=== PATIENT | female | born 1950 | race Caucasian/White ===

== ENCOUNTER → 2018-12-24 | Outpatient (CLI) | payer OTHER ==
[~2018-12-24] VITALS: Ht 154.9 cm; Wt 96.4 kg
[~2018-12-24] MED LIST: CLONAZEPAM 0.50.5 M1 PO; CLONAZEPAM 1 MG1 M1 PO; KEFLEX500 M1 PO; LANTUS100 UNIT/M SUBQ; LIPITOR10 MG PO; LISINOPRIL40 MG PO; NEURONTIN 300300 M1 PO; NOVOLOG100 UNIT/1 SUBQ; OMEPRAZOLE 20 M20 M1 PO; SINEMET 25-1001 EAC1 PO; SYNTHROID125 MC1 PO; VERAPAMIL HCL120 MG PO
--- NOTE | ~2018-12-24 | HPC ---
[facility] [place] [address] PAIN MANAGEMENT CONSULTATION Name: DONALD OLGUIN Room #: REG [facility].#: [id number] Admission: 12/24/18 Attend Phys: Jerry Wang DO Discharge: Date of : 50 Report #: [id number] THIS REPORT FOR: //name// CC: Jerry Conte Jr., MD DATE OF SERVICE: 12/24/2018 REFERRING PHYSICIAN: Paul Napier MD PRIMARY CARE PHYSICIAN: Brett Conte MD CHIEF COMPLAINT: Low back pain, bilateral lower extremity pain, right greater than left. HISTORY OF PRESENT ILLNESS: As you know, the patient is a 68-year-old morbidly obese female with longstanding history of low back pain, bilateral lower extremity pain, right greater than left, who presented in 2016. She sought evaluation from [facility], who requested the patient be evaluated for spinal cord stimulator. She has completed the psychiatric evaluation and all prerequisites and required to undergo trial implantation. She returns today in followup visit to undergo this trial implantation. She is indicating pain today at level of 2/10 while resting, up to 7/10 with ambulation. She returns to undergo spinal cord stimulator trial implantation to determine if her symptoms can improve with such device. ALLERGIES: MORPHINE, EPINEPHRINE, HYDROMORPHONE. CURRENT MEDICATIONS: Insulin sliding scale, Lantus 13 units before bedtime, clonazepam 1 mg p.r.n., levothyroxine 125 mcg per day, carbidopa/levodopa 25/100 t.i.d., verapamil 120 mg per day, lisinopril 40 mg per day, omeprazole 20 mg per day, atorvastatin 10 mg per day. SOCIAL HISTORY: The patient denies tobacco, alcohol, IV or illicit drug use. She is retired, retired in 2001, not receiving workmen's compensation, accompanied by her present in room today. IMAGING: No new imaging available. PQRS: The patient has known arthritic changes of bilateral hips and lumbar spine. No rheumatoid arthritis. She is placing pain anywhere from 06/01-10/29. She is a fall risk, but has not had a fall in last 3 months, but is utilizing ambulatory devices on an as needed basis. Today, she is utilizing a roller walker. She is not on blood thinners. She has a history of hypertension. She [facility] [address] [place] [address] PAIN MANAGEMENT CONSULTATION Name: DONALD OLGUIN Kasandra Room #: REG [facility] Marcelle#: [id number] Admission: 12/24/18 Attend Phys: Jerry Wang DO Discharge: Date of : 50 Report #: [id number] is not on chronic opioids, has a low opioid addiction potential. PHYSICAL EXAMINATION: VITAL SIGNS: Blood pressure 148/68, pulse 76, respiratory rate 20 and unlabored. The patient is 100% on room air. Height 5 feet 1 inch tall, weight 212.6 pounds, BMI calculated 40.2. GENERAL: Well-developed, well-nourished, well-hydrated, class 3, morbidly obese 68-year-old female, appearing stated age, placing current pain score 2/10-7/10. HEENT: Normocephalic, atraumatic. Pupils equal, round, reactive to light. EXTREMITIES: Show no clubbing, no cyanosis, and no edema. MUSCULOSKELETAL: Lower extremity strength is symmetrical, 5/5. Muscle bulk and tone equal and symmetrical. Seated straight leg raising negative. Supine straight leg raising positive on the right. ASSESSMENT: 1. Symptomatic lumbar radiculopathy. 2. 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 3. Displacement of the lumbar intervertebral disk with radiculopathy. 4. Lumbosacral spondylosis with radiculopathy. 5. Neuroforaminal stenosis of the lumbar spine. 6. Failed lumbar spine surgery. 7. Facet arthropathy of the lumbar spine. 8. Chronic intractable pain. PLAN: 1. The patient returns today in followup visit to undergo spinal cord stimulator trial implantation. She has completed all prerequisites to undergo the procedure. She has been established in today's appointment to undergo a spinal cord stimulator trial implantation with 2 leads in hope of improving pain. The patient has been advised risks and benefits of the procedure. These risks include but are not necessarily limited to bleeding, bruising, infection, worsening pain, no relief of pain, also risk of temporary or permanent muscle weakness, temporary or permanent nerve damage, possible paralysis, post-dural puncture headache and . The patient states she understands and wishes to proceed. 2. The patient was provided a prescription of Keflex 500 mg dose 1 tab p.o. b.i.d. to be taken today and tomorrow. This is utilized for prophylactic dosing for the procedure. 3. We will see the patient back in followup visit in 1 week. At that time, review the efficacy of the spinal cord stimulator and determine if permanent implantation would be recommended DESCRIPTION OF PROCEDURE: Two-lead spinal cord stimulator trial implantation under fluoroscopic guidance. After obtaining informed consent, the patient was taken to the fluoroscopy [address] [address] PAIN MANAGEMENT CONSULTATION Name: DONALD OLGUIN Room #: REG [facility]#: [id number] Admission: 12/24/18 Attend Phys: Jerry Wang DO Discharge: Date of : 50 Report #: [id number] suite, placed in a prone position with 3 pillows under the abdomen to decrease the lumbar lordosis and improve thoracic kyphosis. Cardiopulmonary monitoring was established and the patient's vital signs were monitored throughout the procedure. The patient's thoracolumbar spine was prepped and draped in aseptic fashion using chlorhexidine and sterile draping procedures. No IV sedation was given prior to procedure. An AP fluoroscopic imaging was obtained to identify marked midline positions of the T10 through L2 spinous processes. The skin was anesthetized with 10 mL of 1% lidocaine on the right and 10 mL of lidocaine 1% on the left. This was done prior to the introduction of the 14-gauge 4-inch Tuohy needles. Skin entry was at the approximate level of the L1 vertebral body. Needle was advanced using a paramedian approach to the right of midline, approximately 45 degree angle. Loss of resistance to air was utilized to verify placement within the epidural space. Epidural space entered at the T12-L1 interspace. Lateral fluoroscopic view was obtained to confirm the position of the Tuohy needle within the epidural space. Aspiration noted to be negative for heme or cerebrospinal fluid. The patient did not complain of pain or paresthesias during the needle placement. The spinal cord stimulating lead was then advanced through the Tuohy needle under direct visualization within the midline. The tip of the stimulating lead was aligned with the midpoint of the T7 vertebral body and located within the midline. AP imaging was then obtained again to identify and kristin the midline position of the T10-L2 spinous processes. We then introduced the second 14-gauge 4-inch Tuohy needle on the left side. Skin entry site was at the approximate level of the L1 vertebral body. Needle was advanced using a paramedian approach to the left of midline, approximately 45-degree angle. Loss of resistance to air was utilized to verify placement within the epidural space. Epidural space entered at the T12-L1 interspace. Lateral fluoroscopic view obtained to confirm the position of the Tuohy needle within the epidural space. Aspiration noted to be negative for heme or cerebrospinal fluid. The patient did not complain of pain or paresthesias during needle placement. Spinal cord stimulating lead was advanced through the Tuohy needle under direct visualization within the midline. Tip of the stimulating lead was aligned with the inferior endplate of T8 vertebral body and located approximately midline. The stylets were then removed from the Tuohy needles, as were the Tuohy needles themselves. The position of the leads was confirmed using both AP and lateral fluoroscopy. The leads were then anchored to the patient's back with Steri-Strips, benzoin and OpSite bandaging. The patient was then placed in seated position. She completed multiple maneuvers for attempting to position the spinal cord stimulator leads based on movement. She was then placed in a prone position. AP and lateral imaging was obtained to confirm the position of the electrodes and the stylets within the epidural space. After confirmation of positioning, the patient was then taken [address] [address] PAIN MANAGEMENT CONSULTATION Name: DONALD OLGUIN Room #: REG [facility]#: [id number] Admission: 12/24/18 Attend Phys: Jerry Wang DO Discharge: Date of : 50 Report #: [id number] to her recovery room in stable condition. There were no apparent complications. After meeting the discharge criteria and undergoing programming of the device, the patient was then discharged home. By: [id number] Jerry Wang DO /melisa
[2018-12-24 07:17] VITALS: BP 148/68
--- NOTE | 2018-12-24 07:23 | NUR ---
Pain Clinic Assessment: 1. History of Osteoarthritis: HIPS AND SPINE History of Rheumatoid Arthritis: NO 2. Height: 5 ft. 1 in. 154.9 cm. Weight: 212.6 lb. oz. 96.435 kg. Patient's BMI: 40.2 3. Vital Signs: BP: 148/68 Pulse: 76 Resp: 20 Temp: 02 Sat: 100 ECG Mon: 4. Pain Intensity: 2 5. Fall Risk: Dizziness: N Needs help standing or walking: Y Fallen in the last 3 months: Y Fall risk comments: 6. Patient on Blood Thinner: None 7. History of Hypertension: Y 8. Opioid Therapy greater than 6 weeks: N Opiate Contract Signed: 9. Risk Assessment Tool Provided: 10. Functional Assessment Tool: 11. Recreational Drug Use: Never Drug Type: Tobacco Use: Never Smoker Tobacco Type: Amount or Packs/day: How Many Years: Alcohol Use: No Frequency: Quant:
== END | disposition home or self-care (01) ==
LOC: PAIN 06:44
DX: M51.16 Intervertebral disc disorders with radiculopathy, lumbar region (principal); M48.061 Spinal stenosis, lumbar region without neurogenic claudication; M47.27 Other spondylosis with radiculopathy, lumbosacral region; M96.1 Postlaminectomy syndrome, not elsewhere classified; M46.96 Unspecified inflammatory spondylopathy, lumbar region; G89.29 Other chronic pain; M16.0 Bilateral primary osteoarthritis of hip; I12.9 Hypertensive chronic kidney disease with stage 1 through stage 4 chronic kidney disease, or unspecified chronic kidney disease; E11.22 Type 2 diabetes mellitus with diabetic chronic kidney disease; N18.9 Chronic kidney disease, unspecified; E78.5 Hyperlipidemia, unspecified; K21.9 Gastro-esophageal reflux disease without esophagitis; F41.9 Anxiety disorder, unspecified; Z98.890 Other specified postprocedural states; Z85.850 Personal history of malignant neoplasm of thyroid; Z90.49 Acquired absence of other specified parts of digestive tract; Z88.8 Allergy status to other drugs, medicaments and biological substances; Z79.4 Long term (current) use of insulin; Z79.899 Other long term (current) drug therapy

== ENCOUNTER → 2018-12-31 | Outpatient (CLI) | payer OTHER ==
[~2018-12-31] VITALS: Ht 154.9 cm; Wt 97.3 kg
[2018-12-31 09:12] VITALS: BP 150/70
--- NOTE | 2018-12-31 09:41 | NUR ---
Pain Clinic Assessment: 1. History of Osteoarthritis: HIPS AND SPINE History of Rheumatoid Arthritis: NO 2. Height: 5 ft. 1 in. 154.9 cm. Weight: 214.6 lb. oz. 97.342 kg. Patient's BMI: 40.6 3. Vital Signs: BP: 150/70 Pulse: 77 Resp: 22 Temp: 02 Sat: 100 ECG Mon: 4. Pain Intensity: 2 5. Fall Risk: Dizziness: N Needs help standing or walking: Y Fallen in the last 3 months: Y Fall risk comments: 6. Patient on Blood Thinner: None 7. History of Hypertension: Y 8. Opioid Therapy greater than 6 weeks: N Opiate Contract Signed: 9. Risk Assessment Tool Provided: 10. Functional Assessment Tool: 11. Recreational Drug Use: Never Drug Type: Tobacco Use: Never Smoker Tobacco Type: Amount or Packs/day: How Many Years: Alcohol Use: No Frequency: Quant:
--- NOTE | 2019-01-06 14:42 | HPC ---
[facility] [place] [address] PAIN MANAGEMENT CONSULTATION Name: DONALD OLGUIN Kasandra [id number] Admission: 12/31/18 Attend Phys: Jerry Wang DO Discharge: Date of : 50 Report #: [id number] THIS REPORT FOR: //name// CC: Jerry Conte Jr., MD DATE OF SERVICE: 12/31/2018 CHIEF COMPLAINT: Low back pain; bilateral lower extremity pain, right greater than left. HISTORY OF PRESENT ILLNESS: As you know, the patient is a 68-year-old morbidly obese female with longstanding history of low back pain, bilateral lower extremity pain, right greater than left, who had an initial presentation in 2016. She has been "just dealing with her pain" for years. She sought neurosurgery evaluation with Dr. Napier who advised a trial of a spinal cord stimulator. She underwent a psychiatric evaluation and progressed towards a temporary implant. The patient returns today having completed 1 week of a trial implantation of a spinal cord stimulator, reporting pain at 2/10, which is a reduction from her initial visits where she was reporting pain at 8/10. She returns today in followup visit for explantation of the spinal cord stimulator and discuss efficacy. ALLERGIES: MORPHINE, EPINEPHRINE AND HYDROMORPHONE. CURRENT MEDICATIONS: Insulin sliding scale, Lantus 30 units before bedtime, clonazepam 1 mg p.r.n., levothyroxine 125 mcg per day, carbidopa/levodopa 25/100 mg t.i.d., verapamil 120 mg once a day, lisinopril 40 mg once a day, omeprazole 20 mg once a day and atorvastatin 10 mg per day. SOCIAL HISTORY: The patient denies tobacco, alcohol, IV or illicit drug use. She is retired, retired in 2001, unaccompanied today. IMAGING: No new imaging available. PQRS: The patient has known arthritic changes in bilateral hips and lumbar spine. No rheumatoid arthritis. Pain today is rated at 2/10. She is a fall risk and has had multiple falls in the last 3 months. She is not utilizing an ambulatory device despite our recommendations to do so. She is not on blood thinners, but is treated for hypertension. She is not on chronic opioids. She has a low risk of opioid addiction. Pain impact is rated at 33 of 70, moderate interference of daily activities secondary to pain. PHYSICAL EXAMINATION: [address] [address] PAIN MANAGEMENT CONSULTATION Name: DONALD OLGUIN [facility] [id number] Admission: 12/31/18 Attend Phys: Jerry Wang DO Discharge: Date of : 50 Report #: [id number] VITAL SIGNS: Blood pressure 150/70, pulse 77, respiratory rate 22 and unlabored. The patient is 100% on room air. Height 5 feet 1 inch tall, weight 214.6 pounds, BMI calculated 40.6. GENERAL: Well-developed, well-nourished, well-hydrated, class 3, morbidly obese 68-year-old female appearing stated age, pain is rated currently 2/10. HEENT: Normocephalic, atraumatic. Pupils equal, round, reactive to light. EXTREMITIES: Show no clubbing, no cyanosis, and no edema. MUSCULOSKELETAL: The patient has bandaging over the lumbar spine. There is no significant drainage through the bandages. In fact, they are clean, dry and intact. Lower extremity strength is symmetrical, 5/5. Muscle bulk and tone equal and symmetrical in lower extremities, though there is some deconditioning. Seated straight leg raising negative. Supine straight leg raising positive right. ASSESSMENT: 1. Symptomatic lumbar radiculopathy. 2. Spinal stenosis of lumbar spine, progressively worsening. 3. Displacement of lumbar intervertebral disk with radiculopathy. 4. Lumbosacral spondylosis with radiculopathy. 5. Foraminal stenosis of the lumbar spine. 6. Failed lumbar spine surgery. 7. Facet arthropathy of the lumbar spine. 8. Morbid obesity. 9. Chronic intractable pain. PLAN: 1. The patient has returned today in followup visit indicating improvement in pain with the spinal cord stimulator. She is unable to place a specific number on the improvement in symptoms, though she has gone from an 8/10 pain to a 2/10 pain with the device and was able to go about more of her activities of daily living without significant pain interference. At this time, the patient wishes to consider her options. Before moving forward with permanent implant, she wishes to determine if her pain improvement was significant enough to undergo this procedure. We have advised the patient to take the weekend and part of next week to reevaluate efficacy. If she notes improvement of greater than 70%, we would recommend possibly moving forward with permanent implant. At this point, we will explant the device and have the patient contact our clinic once she has decided whether or not this has been an effective treatment for her. 2. If the patient decides to move forward with a permanent implant, she will follow up with her neurosurgeon, Dr. Paul Napier in regards to implantation of the device. It is our understanding that Dr. Napier utilizes either Dr. Thomas or Dr. Miranda Christine for implantation of spinal cord stimulator. She may need to follow up with Dr. Napier's office to gain referrals to his partners who do the implantations. The patient has contact with Dr. Napier's office and she can contact him next week if she wishes to move forward. 3. We wish to thank Dr. Napier for the opportunity to work with this patient. [address] [address] PAIN MANAGEMENT CONSULTATION Name: CLAUDONALD Room #: REG [facility]#: [id number] Admission: 12/31/18 Attend Phys: Jerry Wang DO Discharge: Date of : 50 Report #: [id number] I will keep you apprised of her response and whether or not she wishes to move forward with permanent implant once we hear back from her. PROCEDURE NOTE Explantation of spinal cord stimulator leads. After discussion of efficacy with the device, the patient was placed in a seated position. We removed all the Steri-Strips and OpSite bandaging. There were 2 spinal cord stimul[address] leads in place. They had not displaced from their original implantation position. There is no erythema, drainage around the insertion site of the leads. Both leads were removed without complications. Each lead had their 8 electrodes and tips intact. The area of the insertions were cleaned sterilely and bandaged with sterile bandaging. The patient was advised to watch for any excessive drainage, changes in skin color, texture or increasing pain in the area. If she notes, she knows to contact our clinic. Otherwise, monitor for healing. <ELECTRONICALLY SIGNED> By: Jerry Wang DO 01/06/19 [id number] Jerry Wang DO /nt
== END ==
LOC: PAIN 06:49
DX: M51.16 Intervertebral disc disorders with radiculopathy, lumbar region (principal); M47.27 Other spondylosis with radiculopathy, lumbosacral region; M48.061 Spinal stenosis, lumbar region without neurogenic claudication; E66.01 Morbid (severe) obesity due to excess calories; G89.4 Chronic pain syndrome; Z88.5 Allergy status to narcotic agent; Z88.1 Allergy status to other antibiotic agents; Z79.84 Long term (current) use of oral hypoglycemic drugs; Z79.899 Other long term (current) drug therapy